=== PATIENT | male | born 1960 | race Caucasian/White ===

== ENCOUNTER 2019-11-03 13:23 | Emergency (ER) | payer SELFPAY ==
[2019-11-03 13:30] VITALS: BP 214/108; PULSE 107; RESP 18; TEMP 36.8; O2SAT 97; BMI 30.5
--- NOTE | 2019-11-03 13:36 | DI.RAD.S_ITS ---
PROCEDURE: XR TIBIA FIBULA RT 2V INDICATIONS: wound TECHNIQUE: 2 views of the tibia and fibula were acquired. COMPARISON: None. FINDINGS: Bones: No definite fractures or dislocations. A lucency projecting over the distal tibia on the lateral view is likely artifactual. No bony erosions or periosteal reaction. No suspicious bony lesions. Soft tissues: No suspicious soft tissue calcifications or masses. IMPRESSION: 1. No definite radiographic evidence of osteomyelitis. If clinical concern persists, further evaluation is recommended with MRI. Dictated by: Yanick Eddy M.D. on 11/03/2019 at 14:57 Approved by: Yanick Eddy M.D. on 11/03/2019 at 15:07
--- NOTE | 2019-11-03 14:24 | ED.WOUNDLAC ---
HPI - Wound/Laceration <SANTIAGO Patino-BC - Last Filed: 11/03/19 15:44> General Chief Complaint: Wound/Laceration Stated Complaint: left side calf a wound that wont heal Time Seen by Provider: 11/03/19 13:25 Source: patient and family Mode of arrival: Ambulatory Limitations: no limitations History of Present Illness HPI narrative: The patient is a 59-year-old male with history of type 2 diabetes who presents with a chief complaint of wound on his left lower leg. He states that the wound is been there for approximately 2 months, he is not sure how he got it. He states that he is picking at the scabs and scratching it. He denies any fevers nausea vomiting or diarrhea. However patient's has noticed that the redness has been spreading from the wound, and that has been feeling warm. She is concerned about infection and the patient's blood sugars. He does not check his blood sugars at home. He denies any fevers nausea vomiting or diarrhea. Of note he states he is no longer taking his high blood pressure medications. Is concerned about losing his leg as his son has lost part of his leg. Related Data Previous Rx's Medication Instructions Recorded clindamycin HCl 300 mg PO TID #30 cap 11/03/19 Allergies Allergy/AdvReac Type Severity Reaction Status Date / Time Penicillins [PENICILLINS] Allergy Unknown Verified 11/03/19 13:30 PENICILLIN Allergy Mild Uncoded 12/03/17 12:07 Review of Systems <SANTIAGO Patino- - Last Filed: 11/03/19 15:44> Review of Systems Narrative: GENERAL: Denies chills, fatigue, malaise, fever, sweats. HEENT: Denies sinus pain, ear pain, sore throat, difficulty swallowing, dizziness. RESPIRATORY: Denies dyspnea, cough, wheezing, hemoptysis, sputum. CARDIOVASCULAR: Denies chest pain, palpitations, orthopnea, edema, GASTROINTESTINAL: Denies nausea, vomiting, abdominal pain, diarrhea, constipation, melena. : Denies dysuria, frequency, incontinence, hematuria, urinary retention. MUSCULOSKELETAL: denies weakness, joint pain, or bony pain SKIN: See HPI NEUROLOGIC: Denies weakness, headache, numbness, change in speech, confusion, seizures, incoordination. PSYCHIATRIC: No concerning psychosocial issues. 12 point review of systems is negative except for those stated above Patient History <RUTH Patino - Last Filed: 11/03/19 15:44> Medical History (Updated 11/03/19 @ 15:32 by RUTH Patino) Type 2 diabetes mellitus (Acute) Social History Smoking Status: Unknown if ever smoked Smoking Status: Unknown if ever smoked alcohol intake frequency: holidays/special occasions only Substance Use Type: marijuana Exam <RUTH Patino - Last Filed: 11/03/19 15:44> Narrative Exam Narrative: GENERAL: This is a well-nourished, well-developed patient, in no acute distress with at bedside HEAD: Atraumatic. Normocephalic. No temporal or scalp tenderness. EYES: Pupils equal round and reactive. Extraocular motions intact. No scleral icterus. No injection or drainage. ENT: Nose without bleeding, purulent drainage or septal hematoma. Throat without erythema, tonsillar hypertrophy or exudate. Uvula midline. Airway patent. NECK: Trachea midline. No JVD or lymphadenopathy. Supple, nontender, no meningeal signs. CARDIOVASCULAR: Regular rate and rhythm RESPIRATORY: Clear to auscultation. Breath sounds equal bilaterally. No wheezes, rales, or rhonchi. No cough. No increased respiratory effort. No accessory muscle use. GASTROINTESTINAL: Abdomen soft, non-tender, nondistended. No hepato-splenomegaly, or palpable masses. No guarding. No pain to palpation. EXTREMITIES: No clubbing, cyanosis, or edema. No joint tenderness, effusion, or edema noted. Bilateral pedal pulses intact. See skin exam. BACK: Nontender without deformity or crepitance. No flank tenderness. NEURO: AOx3. SKIN: 1 cm crusty scab noted on lateral aspect of left leg, with 3 x 2 cm surrounding erythema. No drainage noted. Initial Vital Signs Initial Vital Signs: Vital Signs Temperature 98.2 F 11/03/19 13:30 Pulse Rate 107 H 11/03/19 13:30 Respiratory Rate 18 11/03/19 13:30 Blood Pressure 214/108 H 11/03/19 13:30 Pulse Oximetry 97 11/03/19 13:30 <Alicia Masters MD - Last Filed: 11/05/19 03:11> Initial Vital Signs Initial Vital Signs: Vital Signs Temperature 98.2 F 11/03/19 13:30 Pulse Rate 107 H 11/03/19 13:30 Respiratory Rate 18 11/03/19 13:30 Blood Pressure 214/108 H 11/03/19 13:30 Pulse Oximetry 97 11/03/19 13:30 Course <RUTH Patino - Last Filed: 11/03/19 15:44> Orders Ordered: ED Orders 11/03/19 13:36 XR tibia fibula LT 2V Stat Vital Signs Vital signs: Vital Signs - 8 hr 11/03/19 13:30 11/03/19 15:37 Temperature 98.2 F 97.7 F Pulse Rate 107 H 100 H Respiratory Rate 18 16 Blood Pressure 214/108 H Blood Pressure [Left Arm] 160/90 H Pulse Oximetry 97 97 <Alicia Masters MD - Last Filed: 11/05/19 03:11> Orders Ordered: ED Orders 11/03/19 13:36 XR tibia fibula LT 2V Stat Vital Signs Vital signs: Vital Signs - 8 hr 11/03/19 13:30 11/03/19 15:37 Temperature 98.2 F 97.7 F Pulse Rate 107 H 100 H Respiratory Rate 18 16 Blood Pressure 214/108 H Blood Pressure [Left Arm] 160/90 H Pulse Oximetry 97 97 MDM - Wound/Laceration <RUTH Patino - Last Filed: 11/03/19 15:44> Imaging Data Tib-fib x-ray: Radiologist's Impression: [address] [place] [id number] XRay Report Signed Patient: Omar Angeles GMR#: [id number] : 1960Acct:[id number] Age/Sex: 59 / MDate of Service: 11/03/19 Loc: ED Accession Number: [id number] Procedure: XR tibia fibula LT 2V Ordering Provider: Kerrie Mccracken PROCEDURE: XR TIBIA FIBULA RT 2V INDICATIONS: wound TECHNIQUE: 2 views of the tibia and fibula were acquired. COMPARISON: None. FINDINGS: Bones: No definite fractures or dislocations. A lucency projecting over the distal tibia on the lateral view is likely artifactual. No bony erosions or periosteal reaction. No suspicious bony lesions. Soft tissues: No suspicious soft tissue calcifications or masses. IMPRESSION: 1. No definite radiographic evidence of osteomyelitis. If clinical concern persists, further evaluation is recommended with MRI. Dictated by: Yanick Eddy M.D. on 11/03/2019 at 14:57 Approved by: Yanick Eddy M.D. on 11/03/2019 at 15:07 [facility] Narrative Medical decision making narrative: The patient is a 59-year-old male who presents with a chief complaint of a nonhealing wound on his lower leg. He has no signs of systemic infection, no fever, and nausea vomiting or diarrhea. He appears very well and nontoxic in the emergency department. The patient it does have an allergy to penicillin, is unsure what it was. He states he has worked well clindamycin in the past. I sent a prescription in, with stated understanding of taking with probiotic or yogurt. Encouraged close PCP follow-up the next few days. Discussed monitor for signs of systemic infection including extending redness, fevers, inability keep down fluids. Patient have no questions or concerns upon discharge and state understanding of return precautions as well as follow-up care. I discussed that he should keep a close sinus blood sugars, but he states he has not been watching those for years. Discharge Plan Departure Patient Disposition: Home Clinical Impression: Wound infection Discharge Date/Time: 11/03/19 15:44 Instructions: DI for Wound Infection Activity Restrictions/Additional Instructions: Thank you for trusting us with your care today. Your x-ray shows no signs of osteomyelitis or bone infection. This is reaffirmed by your lack of fever vomiting etcetera Please follow-up with primary care provider in the next few days. I sent a prescription of antibiotics to [facility] in [place]. Please take this with a probiotic or yogurt. Please monitor for signs of worsening infection such as fever, inability keep down fluids, spreading redness despite several doses of antibiotics Please follow-up with primary care provider in the next few days. Please come back to the emergency department for any acute concerns. Prescriptions: New clindamycin HCl 300 mg capsule 300 mg PO TID Qty: 30 RF: 0 Referrals: Kerrie Paredes DO [Primary Care Provider] -
[2019-11-03 15:37] VITALS: BP 160/90; PULSE 100; RESP 16; TEMP 36.5; O2SAT 97
== END 2019-11-03 15:44 | disposition home or self-care (01) ==
PROVIDERS: Emergency Provider Nurse Practitioner Family; Family Provider Student in an Organized Health Care Education/Training Program; PCP Family Medicine
DX: T14.8XXA Other injury of unspecified body region, initial encounter (principal); E11.9 Type 2 diabetes mellitus without complications
CPT/HCPCS: 73590; 99282; 99283